=== PATIENT | female | born 1935 | race Two or more races ===

== ENCOUNTER 2020-01-27 11:39 | Outpatient (CLI) | payer OTHER | END 2020-01-27 13:00 | disposition home or self-care (01) | LOC: OFIC 805 11:39 | PROVIDERS: ATTEND Otolaryngology Otology & Neurotology | DX: H90.3 Sensorineural hearing loss, bilateral (principal); R42 Dizziness and giddiness; H61.21 Impacted cerumen, right ear ==

== ENCOUNTER 2020-02-01 16:00 | Outpatient (CLI) | payer OTHER | END 2020-02-01 17:22 | disposition home or self-care (01) | LOC: OFIC 805 16:00 | PROVIDERS: ATTEND Otolaryngology Otology & Neurotology | DX: S09.8XXA Other specified injuries of head, initial encounter (principal); J34.2 Deviated nasal septum; S02.2XXA Fracture of nasal bones, initial encounter for closed fracture ==

== ENCOUNTER → 2020-02-29 | Outpatient (CLI) | payer OTHER | END | disposition home or self-care (01) | LOC: OFIC 805 02-26 10:00 | PROVIDERS: ATTEND Otolaryngology Otology & Neurotology | DX: H90.3 Sensorineural hearing loss, bilateral (principal); J34.2 Deviated nasal septum; S09.8XXA Other specified injuries of head, initial encounter; S02.2XXA Fracture of nasal bones, initial encounter for closed fracture ==